=== PATIENT | female | born 1985 | race Caucasian/White ===

== ENCOUNTER 2023-09-11 10:55 | Emergency (ER) | payer OTHER ==
[~2023-09-11] VITALS: Ht 157.5 cm; Wt 72.6 kg
[2023-09-11 11:02] VITALS: BP 113/73; TEMP 98.4
[2023-09-11] MEDS ORDERED: KETOROLAC TROMETHAMINE 15 MG/ML VIAL ONE (11:24)
[2023-09-11] MEDS: KETOROLAC TROMETHAMINE 15 MG/ML VIAL IM ONE (11:29)
[2023-09-11] MEDS ORDERED: BENZ-13 PO (11:38)
[2023-09-11] MEDS ORDERED: IBUP-1955 PO (11:38)
[2023-09-11 11:46] VITALS: O2SAT 98
== END 2023-09-11 11:47 | disposition home or self-care (01) ==
LOC: ER 11:13
DX: J06.9 Acute upper respiratory infection, unspecified (principal); R05.9 Cough, unspecified; R09.81 Nasal congestion; J02.9 Acute pharyngitis, unspecified; J45.909 Unspecified asthma, uncomplicated; Z20.822 Contact with and (suspected) exposure to COVID-19
CPT/HCPCS: 99283; 87426; 96372; 87804 ×2; J1885

== ENCOUNTER 2023-10-06 13:03 | Emergency (ER) | payer OTHER ==
[~2023-10-06] VITALS: Ht 157.5 cm; Wt 68.9 kg
[~2023-10-06 13:03] MED LIST: BENZ-13 PO; IBUP-1955 PO
[2023-10-06] MEDS: IV NS 0.9% 1,000 ML BAG IV ONE (13:30)
[2023-10-06 13:51] LABS: EOSINOPHILS % (AUTO) 0.5 % (0.0-6.0); HEMATOCRIT 37 % (33-45); HEMOGLOBIN 12.4 g/dL (11.5-14.8); LYMPHOCYTES # (AUTO) 0.4 K/uL (0.8-4.8); LYMPHOCYTES % (AUTO) 6.7 % (20.0-44.0); MEAN CORPUSCULAR HEMOGLOBIN 31 PG (26.0-33.0); MEAN CORPUSCULAR HGB CONC 34 g/dl (31.0-36.0); MEAN CORPUSCULAR VOLUME 93 fL (82-100); MONOCYTES # (AUTO) 0.2 K/uL (0.1-1.30); NEUTROPHILS # (AUTO) 5.5 K/uL (1.8-8.9); NEUTROPHILS % (AUTO) 89.8 % (43.0-81.0); PLATELET COUNT (AUTO) 201 K/uL (150-450); RED BLOOD CELL COUNT(AUTO) 3.95 MIL/uL (4.0-5.2); RED CELL DISTRIBUTION WIDTH 13.9 % (11.5-15.0); WHITE BLOOD COUNT (AUTO) 6.1 K/uL (4.3-11.0)
[2023-10-06 14:11] LABS: BILIRUBIN,DIRECT 0.2 mg/dL (0.0-0.2); BILIRUBIN,TOTAL 0.9 mg/dL (0.2-1.0); CALCIUM, SERUM 8.7 mg/dL (8.5-10.1); CREATININE 0.8 mg/dL (0.6-1.3); POTASSIUM 3.3 mmol/L (3.5-5.1)
[2023-10-06] MEDS ORDERED: ONDANSETRON HCL/PF 4 MG/2 ML VIAL ONE (14:19)
[2023-10-06] MEDS ORDERED: MORPHINE SULFATE INJ 2 MG/ML DISP.SYRIN ONE ×2 (14:19→15:53)
[2023-10-06] MEDS: ONDANSETRON HCL/PF 4 MG/2 ML VIAL IV ONE (14:25)
[2023-10-06] MEDS: MORPHINE SULFATE INJ 2 MG/ML DISP.SYRIN IV ONE ×2 (14:25→16:00)
[2023-10-06 15:28] LABS: APPEARANCE,URINE CLEAR (CLEAR); BILIRUBIN,URINE NEGATIVE (NEGATIVE); BLOOD, URINE NEGATIVE Ery/uL (NEGATIVE); COLOR,URINE YELLOW (YELLOW); KETONES,URINE NEGATIVE (NEGATIVE); LEUKOCYTE ESTERASE ,URINE NEGATIVE (NEGATIVE); NITRITE, URINE NEGATIVE (NEGATIVE); PH,URINE 7.5 (5.0-8.0); PROTEIN,URINE NEGATIVE (NEGATIVE); UGLUCOSE NEGATIVE (NEGATIVE); UROBILINOGEN,URINE 0.2 EU/dL (0.2)
[2023-10-06 15:44] LABS: PREGNANCY TEST URINE QUAL NEGATIVE (NEGATIVE)
[2023-10-06] MEDS ORDERED: FAMOTIDINE/PF INJ 20 MG/2 ML VIAL IV ONE (15:53)
[2023-10-06] MEDS: FAMOTIDINE/PF INJ 20 MG/2 ML VIAL IV ONE (16:00)
[2023-10-06] MEDS ORDERED: ONDA4TAB5 PO (16:37)
[2023-10-06 18:25] VITALS: BP 107/62; O2SAT 99
== END 2023-10-06 18:31 | disposition home or self-care (01) ==
LOC: ER 13:13
DX: R10.13 Epigastric pain (principal); R10.32 Left lower quadrant pain; R11.2 Nausea with vomiting, unspecified; J45.909 Unspecified asthma, uncomplicated; Z90.49 Acquired absence of other specified parts of digestive tract
CPT/HCPCS: 99285; 74176; 96374; 96375; 96361; 93005; 96376; 85025; 80048; 83690; 80076; 84703; 81003; 36415; 84484; J3490; J2405; J7030; J2270 ×2

== ENCOUNTER 2023-10-20 23:42 | Emergency (ER) | payer MEDICAID, OTHER ==
[~2023-10-20] VITALS: Ht 149.9 cm; Wt 68.0 kg
[~2023-10-20 23:42] MED LIST changes: +ONDA4TAB5 PO
[2023-10-21] MEDS ORDERED: AMOX500C2 PO (01:33)
[2023-10-21] MEDS ORDERED: AMOXICILLIN TRIHYDRATE 250 MG CAPSULE ONE (01:34)
[2023-10-21] MEDS ORDERED: IBUPROFEN 600 MG TABLET ONE (01:35)
[2023-10-21] MEDS: AMOXICILLIN TRIHYDRATE 500 MG CAPSULE PO ONE (01:39)
[2023-10-21] MEDS: IBUPROFEN 600 MG TABLET PO ONE (01:39)
[2023-10-21 01:52] VITALS: BP 127/70; TEMP 98.3; O2SAT 98
== END 2023-10-21 01:52 | disposition home or self-care (01) ==
LOC: ER 23:45
DX: J02.9 Acute pharyngitis, unspecified (principal); J45.909 Unspecified asthma, uncomplicated; Z79.899 Other long term (current) drug therapy; Z60.2 Problems related to living alone

== ENCOUNTER 2024-03-15 20:30 | Emergency (ER) | payer OTHER ==
[~2024-03-15] VITALS: Ht 160 cm; Wt 72.6 kg
[~2024-03-15 20:30] MED LIST changes: +AMOX500C2 PO
[2024-03-15] MEDS ORDERED: ERYT3.5O9 EACHEYE (22:46)
[2024-03-15 22:50] VITALS: BP 130/79; TEMP 98.6; O2SAT 99
[2024-03-15] MEDS ORDERED: IBUPROFEN 600 MG TABLET ONE (23:00)
[2024-03-15] MEDS: IBUPROFEN 600 MG TABLET PO ONE (23:04)
== END 2024-03-15 23:05 | disposition home or self-care (01) ==
LOC: ER 20:34
DX: H00.014 Hordeolum externum left upper eyelid (principal)

== ENCOUNTER 2024-06-27 18:39 | Inpatient (IN) | payer OTHER ==
[~2024-06-27] VITALS: Ht 157.5 cm; Wt 71.7 kg
[~2024-06-27 18:39] MED LIST changes: +ERYT3.5O9 EACHEYE
[2024-06-27] MEDS ORDERED: methylPREDNISolone SOD SUCC 125 MG/2ML VIAL ONE (19:19)
[2024-06-27] MEDS: ALBUTEROL FS 2.5 MG/3 ML VIAL.NEB CONTNEB ONE (19:20)
[2024-06-27] MEDS: IPRATROPIUM NEB FS 0.5 MG/2.5 ML AMPUL.NEB NEB ONE (19:20)
[2024-06-27] MEDS: methylPREDNISolone SOD SUCC 125 MG/2ML VIAL IV ONE (19:22)
[2024-06-27] MEDS ORDERED: ACETAMINOPHEN ES 500 MG TABLET ONE (19:23)
[2024-06-27] MEDS ORDERED: IPRATROPIUM NEB FS 0.5 MG/2.5 ML AMPUL.NEB ONE (19:26)
[2024-06-27] MEDS ORDERED: ALBUTEROL FS 2.5 MG/3 ML VIAL.NEB ONE (19:26)
[2024-06-27 19:28] LABS: BASOPHILS % (AUTO) 0.1 % (0.0-2.0); HEMATOCRIT 32 % (33-45); HEMOGLOBIN 11.1 g/dL (11.5-14.8); LYMPHOCYTES # (AUTO) 0.3 K/uL (0.8-4.8); LYMPHOCYTES % (AUTO) 3.5 % (20.0-44.0); MEAN CORPUSCULAR HEMOGLOBIN 31 PG (26.0-33.0); MEAN CORPUSCULAR HGB CONC 34 g/dl (31.0-36.0); MEAN CORPUSCULAR VOLUME 91 fL (82-100); MONOCYTES # (AUTO) 0.6 K/uL (0.1-1.30); MONOCYTES % (AUTO) 7.4 % (2.0-12.0); NEUTROPHILS # (AUTO) 7.3 K/uL (1.8-8.9); PLATELET COUNT (AUTO) 185 K/uL (150-450); RED BLOOD CELL COUNT(AUTO) 3.53 MIL/uL (4.0-5.2); RED CELL DISTRIBUTION WIDTH 13.2 % (11.5-15.0); WHITE BLOOD COUNT (AUTO) 8.2 K/uL (4.3-11.0)
[2024-06-27] MEDS: ACETAMINOPHEN ES 500 MG TABLET PO ONE (19:30)
[2024-06-27] MEDS: IV NS 0.9% 1,000 ML BAG IV ONE ×2 (19:30→20:47)
[2024-06-27] MEDS ORDERED: Magnesium 1GM/D5W 100ML PREMIX 100 ML IV ONE ×2 (19:32→21:52)
[2024-06-27 19:36] LABS: CALCIUM, SERUM 8.7 mg/dL (8.5-10.1); CARBON DIOXIDE 28 mmol/L (21-32); CHLORIDE 100 mmol/L (98-107); CREATININE 1.1 mg/dL (0.6-1.3); GLUCOSE 122 mg/dL (74-106); POTASSIUM 3.4 mmol/L (3.5-5.1); SODIUM SERUM 139 mmol/L (136-145); UREA NITROGEN, BLOOD 17 mg/dL (7-18)
[2024-06-27 19:40] VITALS: O2SAT 96
[2024-06-27 19:41] LABS: ALANINE AMINOTRANSFERASE 17 U/L (12-78); ALKALINE PHOSPHATASE 87 U/L (46-116); ASPARTATE AMINOTRANSFERASE 20 U/L (15-37); BILIRUBIN,DIRECT 0.1 mg/dL (0.0-0.2); BILIRUBIN,TOTAL 0.4 mg/dL (0.2-1.0); TOTAL PROTEIN, SERUM 7.6 g/dL (6.4-8.2)
[2024-06-27 19:42] LABS: INR 1.21 (0.91-1.10); PARTIAL THROMBOPLASTIN TIME 32.8 SEC (24.3-34.3); PROTHROMBIN TIME 12.7 SECS (9.2-11.1)
[2024-06-27] MEDS: Magnesium 1GM/D5W 100ML PREMIX 200 ML IV ONE (19:46)
[2024-06-27 19:48] LABS: ABG BASE EXCESS -0.3 mmol/L (-2.0-3.0); ABG OXYGEN SATURATION 97.1 % (94.0-98.0); ABG PCO2 34.7 mmHg (32.0-45.0); ABG PH 7.446 (7.350-7.450); ABG TOTAL HEMOGLOBIN 11.4 G/dL (12.0-16.0); COHb 0.3 % (0.5-1.5); MetHb 0.2 % (0.0-1.5); O2Hb 96.6 % (94.0-97.0); SITE, ABG RIGHT RADIAL
[2024-06-27 19:55] VITALS: O2SAT 98
[2024-06-27 19:56] VITALS: O2SAT 98
[2024-06-27 20:11] VITALS: O2SAT 94
[2024-06-27 20:56] LABS: APPEARANCE,URINE CLEAR (CLEAR); BILIRUBIN,URINE NEGATIVE (NEGATIVE); BLOOD, URINE TRACE-INTA Ery/uL (NEGATIVE); KETONES,URINE NEGATIVE (NEGATIVE); LEUKOCYTE ESTERASE ,URINE NEGATIVE (NEGATIVE); NITRITE, URINE NEGATIVE (NEGATIVE); PH,URINE 6.5 (5.0-8.0); PROTEIN,URINE NEGATIVE (NEGATIVE); UGLUCOSE NEGATIVE (NEGATIVE); UROBILINOGEN,URINE 0.2 EU/dL (0.2)
[2024-06-27 20:57] LABS: COLOR,URINE STRAW (YELLOW)
[2024-06-27 21:06] LABS: ADD URINE CULTURE NO; BACTERIA,URINE Few /HPF (None Seen); RBC,URINE 0-2 /HPF (0-2); WBC,URINE 0-2 /HPF (0-3)
[2024-06-27 21:07] LABS: SQUAMOUS EPITHELIAL CELL,UR Rare /HPF (None Seen)
[2024-06-27] MEDS ORDERED: IV NS 0.9% 250 ML IV ONE (21:50)
[2024-06-27] MEDS ORDERED: IOHEXOL-350 100 ML VIAL IV ONE (21:50)
[2024-06-27] MEDS ORDERED: CT SWABBABLE VALVE TRANS SET 1 EA INFUS.SET MC ONE (21:50)
[2024-06-27] MEDS: CEFTRIAXONE 1 G in IV D5W 50 ML IV SCH (22:00)
[2024-06-27] MEDS ORDERED: ALBUTEROL FS 2.5 MG/3 ML VIAL.NEB NEB PRN (22:00)
[2024-06-27] MEDS: POTASSIUM CHLORIDE 20 MEQ TAB.PRT.SR PO ONE (22:00)
[2024-06-27] MEDS ORDERED: IV NS 0.9% 1,000 ML IV PRN (22:00)
[2024-06-27] MEDS ORDERED: IPRATROPIUM NEB FS 0.5 MG/2.5 ML AMPUL.NEB NEB PRN (22:00)
[2024-06-27] MEDS: methylPREDNISolone SOD SUCC 40 MG/ML VIAL IV SCH (22:00)
[2024-06-27] MEDS ORDERED: CEFTRIAXONE 1GM BAG (ER ONLY) 50 ML IV ONE (22:52)
[2024-06-27] MEDS ORDERED: POTASSIUM CHLORIDE 20 MEQ TAB.PRT.SR PO ONE (22:53)
[2024-06-27] MEDS ORDERED: AZITHROMYCIN 500 MG VIAL ONE (22:53)
[2024-06-27] MEDS: AZITHROMYCIN 500 MG in IV D5W 250 ML IV SCH (23:00)
[2024-06-28] VITALS (11 sets, daily range): BP systolic 100–112; BP diastolic 65–78; TEMP 98.4–99.1; O2SAT 94–100
[2024-06-28] MEDS: IPRATROPIUM NEB FS 0.5 MG/2.5 ML AMPUL.NEB NEB SCH (02:23)
[2024-06-28] MEDS: ALBUTEROL FS 2.5 MG/3 ML VIAL.NEB NEB SCH (02:23)
[2024-06-28] MEDS ORDERED: IPRATROPIUM NEB FS 0.5 MG/2.5 ML AMPUL.NEB ONE ×2 (02:27→07:55)
[2024-06-28] MEDS ORDERED: ALBUTEROL FS 2.5 MG/3 ML VIAL.NEB ONE ×2 (02:27→07:55)
[2024-06-28] MEDS ORDERED: ACETAMINOPHEN 325 MG TABLET ONE (05:55)
[2024-06-28] MEDS: ACETAMINOPHEN 325 MG TABLET PO PRN (05:59)
[2024-06-28] MEDS ORDERED: methylPREDNISolone SOD SUCC 40 MG/ML VIAL ONE (06:19)
[2024-06-28] MEDS ORDERED: ALBU18HF2 IH (07:57)
[2024-06-28] MEDS: ENOXAPARIN SODIUM 40 MG/0.4 ML DISP.SYRIN SQ SCH (09:00)
[2024-06-28] MEDS ORDERED: ENOXAPARIN SODIUM 40 MG/0.4 ML DISP.SYRIN SQ ONE (11:05)
[2024-06-29] VITALS (13 sets, daily range): BP systolic 100–183; BP diastolic 56–82; TEMP 97.8–99; O2SAT 94–99
[2024-06-29 07:54] LABS: HEMATOCRIT 32 % (33-45); HEMOGLOBIN 10.7 g/dL (11.5-14.8); LYMPHOCYTES # (AUTO) 0.8 K/uL (0.8-4.8); LYMPHOCYTES % (AUTO) 5.4 % (20.0-44.0); MEAN CORPUSCULAR HEMOGLOBIN 31 PG (26.0-33.0); MEAN CORPUSCULAR HGB CONC 34 g/dl (31.0-36.0); MEAN CORPUSCULAR VOLUME 92 fL (82-100); MONOCYTES # (AUTO) 0.8 K/uL (0.1-1.30); MONOCYTES % (AUTO) 5.7 % (2.0-12.0); NEUTROPHILS % (AUTO) 88.9 % (43.0-81.0); PLATELET COUNT (AUTO) 188 K/uL (150-450); RED BLOOD CELL COUNT(AUTO) 3.46 MIL/uL (4.0-5.2); RED CELL DISTRIBUTION WIDTH 13.7 % (11.5-15.0); WHITE BLOOD COUNT (AUTO) 14.7 K/uL (4.3-11.0)
[2024-06-29] MEDS: OSELTAMIVIR PHOSPHATE 75 MG CAPSULE PO SCH (08:12)
[2024-06-29 08:20] LABS: CALCIUM, SERUM 8.6 mg/dL (8.5-10.1); CREATININE 0.8 mg/dL (0.6-1.3); POTASSIUM 3.9 mmol/L (3.5-5.1)
[2024-06-29 13:10] LABS: PREGNANCY TEST URINE QUAL NEGATIVE (NEGATIVE)
[2024-06-30] VITALS (11 sets, daily range): BP systolic 103–117; BP diastolic 66–72; TEMP 97.9–99.3; O2SAT 88–99
[2024-06-30] MEDS: ONDANSETRON HCL/PF 4 MG/2 ML VIAL IV PRN (10:21)
[2024-07-01] VITALS (13 sets, daily range): BP systolic 102–116; BP diastolic 65–75; TEMP 97.7–99; O2SAT 90–100
[2024-07-01] MEDS: methylPREDNISolone SOD SUCC 40 MG/ML VIAL IV SCH (13:08)
[2024-07-01 18:00] LABS: BASOPHILS % (AUTO) 0.1 % (0.0-2.0); EOSINOPHILS % (AUTO) 0.2 % (0.0-6.0); HEMATOCRIT 34 % (33-45); HEMOGLOBIN 11.4 g/dL (11.5-14.8); LYMPHOCYTES % (AUTO) 10.6 % (20.0-44.0); MEAN CORPUSCULAR HEMOGLOBIN 31 PG (26.0-33.0); MEAN CORPUSCULAR HGB CONC 34 g/dl (31.0-36.0); MEAN CORPUSCULAR VOLUME 93 fL (82-100); MONOCYTES # (AUTO) 0.7 K/uL (0.1-1.30); MONOCYTES % (AUTO) 7.7 % (2.0-12.0); NEUTROPHILS # (AUTO) 7.6 K/uL (1.8-8.9); NEUTROPHILS % (AUTO) 81.4 % (43.0-81.0); PLATELET COUNT (AUTO) 195 K/uL (150-450); RED BLOOD CELL COUNT(AUTO) 3.63 MIL/uL (4.0-5.2); RED CELL DISTRIBUTION WIDTH 13.4 % (11.5-15.0); WHITE BLOOD COUNT (AUTO) 9.3 K/uL (4.3-11.0)
[2024-07-01 18:42] LABS: CALCIUM, SERUM 8.6 mg/dL (8.5-10.1); CREATININE 0.9 mg/dL (0.6-1.3); POTASSIUM 3.7 mmol/L (3.5-5.1)
[2024-07-01 23:56] LABS: ANISOCYTOSIS 1+; BASOPHILS % (MANUAL) 0 % (0.0-2.0); EOSINOPHILS % (MANUAL) 0 % (0-4); LYMPHOCYTES % (MANUAL) 11 % (16-48); MONOCYTES % (MANUAL) 5 % (0-11.0); NEUTROPHILS % (MANUAL) 84 (42-76); PLATELET ESTIMATE ADEQUATE
[2024-07-02] VITALS (13 sets, daily range): BP systolic 85–117; BP diastolic 51–85; TEMP 97.3–98.2; O2SAT 93–99
[2024-07-02 06:26] LABS: BASOPHILS % (AUTO) 0.2 % (0.0-2.0); HEMATOCRIT 33 % (33-45); HEMOGLOBIN 11.1 g/dL (11.5-14.8); LYMPHOCYTES % (AUTO) 12.8 % (20.0-44.0); MEAN CORPUSCULAR HEMOGLOBIN 31 PG (26.0-33.0); MEAN CORPUSCULAR HGB CONC 34 g/dl (31.0-36.0); MEAN CORPUSCULAR VOLUME 92 fL (82-100); MONOCYTES # (AUTO) 0.6 K/uL (0.1-1.30); NEUTROPHILS # (AUTO) 6.3 K/uL (1.8-8.9); PLATELET COUNT (AUTO) 177 K/uL (150-450); RED BLOOD CELL COUNT(AUTO) 3.57 MIL/uL (4.0-5.2); RED CELL DISTRIBUTION WIDTH 13.4 % (11.5-15.0); WHITE BLOOD COUNT (AUTO) 7.9 K/uL (4.3-11.0)
[2024-07-02 06:46] LABS: CALCIUM, SERUM 8.5 mg/dL (8.5-10.1); CREATININE 0.7 mg/dL (0.6-1.3); POTASSIUM 3.8 mmol/L (3.5-5.1)
[2024-07-02] MEDS: methylPREDNISolone SOD SUCC 40 MG/ML VIAL IV SCH ×2 (09:05→18:01)
[2024-07-02 10:28] LABS: BAND % (MANUAL) 1 % (0.0-5.0); LYMPHOCYTES % (MANUAL) 14 % (16-48); MONOCYTES % (MANUAL) 10 % (0-11.0); NEUTROPHILS % (MANUAL) 75 (42-76); PLATELET ESTIMATE ADEQUATE
[2024-07-02] MEDS: PIPERACILLIN /TAZOBACTAM 3.375 G in IV D5W 50 ML IV SCH (12:53)
[2024-07-03 00:55] VITALS: O2SAT 94
[2024-07-03 06:37] LABS: APPEARANCE,URINE CLEAR (CLEAR); BILIRUBIN,URINE NEGATIVE (NEGATIVE); BLOOD, URINE NEGATIVE Ery/uL (NEGATIVE); COLOR,URINE YELLOW (YELLOW); KETONES,URINE TRACE mg/dL (NEGATIVE); LEUKOCYTE ESTERASE ,URINE NEGATIVE (NEGATIVE); NITRITE, URINE NEGATIVE (NEGATIVE); PROTEIN,URINE NEGATIVE (NEGATIVE); UGLUCOSE NEGATIVE (NEGATIVE); UROBILINOGEN,URINE 0.2 EU/dL (0.2)
[2024-07-03 07:14] LABS: ADD URINE CULTURE NO; BACTERIA,URINE None seen /HPF (None Seen); RBC,URINE 0-2 /HPF (0-2); SQUAMOUS EPITHELIAL CELL,UR None Seen /HPF (None Seen); WBC,URINE 0-2 /HPF (0-3)
[2024-07-03 08:03] VITALS: O2SAT 93
[2024-07-03 08:13] VITALS: O2SAT 98; O2SAT 99
[2024-07-03] MEDS: FLUTICASONE PROPIONATE 16 GM BOTTLE NS SCH (09:12)
[2024-07-03] MEDS ORDERED: AMOX-430 PO (10:10)
[2024-07-03] MEDS ORDERED: PRED5TAB48 PO (10:10)
[2024-07-03] MEDS ORDERED: IPRA3AMP23 IH (10:10)
[2024-07-03] MEDS ORDERED: NEBU-171 MC (10:12)
[2024-07-03 13:01] VITALS: O2SAT 94
[2024-07-03 13:11] VITALS: O2SAT 97; O2SAT 98
[2024-07-03 13:21] VITALS: O2SAT 97; O2SAT 98
== END 2024-07-03 15:14 | disposition home or self-care (01) | DRG 145 ==
LOC: ER 18:39 → TRANSITION 06-28 06:18 → TELE 06-28 10:40 → MED 07-02 12:35
PROVIDERS: ADMIT Internal Medicine; ATTEND Internal Medicine
DX: J20.9 Acute bronchitis, unspecified (principal); J96.00 Acute respiratory failure, unspecified whether with hypoxia or hypercapnia; J10.08 Influenza due to other identified influenza virus with other specified pneumonia; J44.0 Chronic obstructive pulmonary disease with (acute) lower respiratory infection; J45.901 Unspecified asthma with (acute) exacerbation; J44.1 Chronic obstructive pulmonary disease with (acute) exacerbation; J15.9 Unspecified bacterial pneumonia; Z87.891 Personal history of nicotine dependence; Z20.822 Contact with and (suspected) exposure to COVID-19; Z79.899 Other long term (current) drug therapy; Z79.51 Long term (current) use of inhaled steroids
CPT/HCPCS: 36415; 71045-TC; 80048-TC; 80076-TC; 81001; 83605-TC; 84484-TC; 84703-TC; 85025-TC; 85378-TC; 85730-TC; 87040-TC; 87086-TC; 94760-TC; 94761-TC; 94799-TC; A4223; G0378; J0456; J0696; J1650; J2405; J2543; J2919; J3475; J7030; J7040; J7050; J7060; Q9967